=== PATIENT | female | born 1980 | race Hispanic/Latino ===

== ENCOUNTER 2016-11-30 02:10 | Inpatient (IN) ==
[2016-11-30 02:46] LABS: URINE SOURCE VOIDED
[2016-11-30 02:59] LABS: BILIRUBIN URINE NEGATIVE (NEGATIVE); BLOOD URINE NEGATIVE (NEGATIVE); CLARITY CLEAR (CLEAR); COLOR YELLOW; GLUCOSE URINE NEGATIVE (NEGATIVE); LEUKOCYTES URINE NEGATIVE (NEGATIVE); NITRITE URINE NEGATIVE (NEGATIVE); PROTEIN URINE NEGATIVE (NEGATIVE); UROBILINOGEN URINE NORMAL
[2016-11-30] MEDS ORDERED: KEFZOL 1 GM/D5W 1 GM/50 ML IVPB IV PRN (03:38)
[2016-11-30] MEDS ORDERED: STADOL IV PRN (03:38)
[2016-11-30] MEDS ORDERED: ZOFRAN IV PRN (03:38)
[2016-11-30] MEDS ORDERED: PEPCID PO PRN (03:38)
[2016-11-30] MEDS ORDERED: TYLENOL PO PRN (03:38)
[2016-11-30] MEDS ORDERED: PEPCID IV PRN (03:38)
[2016-11-30] MEDS ORDERED: PITOCIN 30 UNITS/LR 30 UNITS/500 ML IV.SOLN IV SCH (03:38)
[2016-11-30] MEDS ORDERED: SODIUM CHLORIDE 0.9% INJ SCH (03:45)
[2016-11-30] MEDS: LR 1,000 ML IV SCH ×2 (04:30→15:29)
[2016-11-30 04:50] LABS: MANUAL DIFF NEEDED? NO
[2016-11-30 04:54] LABS: BASO% 0.2 % (0.0-0.8); EOS# 0.16 X1000 (0.0-0.7); EOS% 1.8 % (0.0-10.0); HEMOGLOBIN 9.8 g/dL (12.0-16.0); IMM GRAN# 0.02 X1000 (0.0-0.04); IMM GRAN% 0.2 % (0.0-0.5); LYMPH# 1.96 X1000 (1.2-3.4); LYMPH% 22.2 % (20.5-51.1); MCH 26.1 PG (27-31); MCHC 32.7 g/dL (33-37); MCV 79.8 FL (81-99); MONO# 0.78 X1000 (0.11-0.59); MONO% 8.8 % (1.7-9.3); MPV 12.3 FL (7.4-10.4); NEUT% 66.8 % (42.2-75.2); PLT 167 X1000 (130-400); RBC 3.76 XMIL (4.2-5.4)
[2016-11-30] MEDS: STADOL IV PRN ×3 (12:10→17:56)
[2016-11-30] MEDS ORDERED: XYLOCAINE-MPF 1% INJ ONE (16:30)
[2016-11-30] MEDS ORDERED: MINERAL OIL PO ONE (17:10)
[2016-11-30] MEDS ORDERED: XYLOCAINE-MPF 1% INJ PRN (19:41)
[2016-11-30] MEDS ORDERED: PITOCIN 30 UNITS/LR 30 UNITS/500 ML IV.SOLN IV ONE (19:41)
[2016-11-30] MEDS ORDERED: AMBIEN PO PRN (19:41)
[2016-11-30] MEDS ORDERED: BENADRYL IV PRN (19:41)
[2016-11-30] MEDS ORDERED: HYDROXYZINE IM PRN (19:41)
[2016-11-30] MEDS ORDERED: PERCOCET-10 PO PRN (19:41)
[2016-11-30] MEDS ORDERED: BOOSTRIX VACCINE IM ONE (19:41)
[2016-11-30] MEDS ORDERED: PITOCIN IM PRN (19:41)
[2016-11-30] MEDS ORDERED: MINERAL OIL PO PRN (19:41)
[2016-11-30] MEDS ORDERED: CYTOTEC PO PRN (19:41)
[2016-11-30] MEDS ORDERED: HYDROXYZINE PO PRN (19:41)
[2016-11-30] MEDS ORDERED: BENADRYL PO PRN (19:41)
[2016-11-30] MEDS ORDERED: PERI MEDS (DERMOPLAST/NUPERCAINAL/TUCKS) MISC PRN (19:41)
[2016-11-30] MEDS ORDERED: PITOCIN 20 UNITS/LR 20 UNITS/1,000 ML IV.SOLN IV SCH (19:41)
[2016-11-30] MEDS ORDERED: FENTANYL-BUPIV-NS 2 MCG-0.1% 200 ML EPIDURAL PRN (19:56)
[2016-11-30] MEDS: MOTRIN PO PRN (21:27)
[2016-11-30] MEDS: PERICOLACE PO SCH (21:27)
--- NOTE | 2016-12-01 03:30 | OPERATIVE NOTE ---
PROCEDURE DATE: 11/30/2016 PROCEDURE: Spontaneous vaginal delivery. ADMISSION DIAGNOSIS: A 36-year-old, 4, para 3-0-0-3 at 39 weeks and 0 days, in latent labor. DELIVERING PHYSICIAN: Dr. Jie Villalobos. FINDINGS: Male weighing 7 pounds 1 ounce. Apgars 9 and 10. DELIVERY SUMMARY: This 36-year-old, G 4, P 3-0-0-3 at 39 weeks and 0 days, admitted in latent labor, underwent augmentation of labor with subsequent spontaneous vaginal delivery. The was delivered over intact perineum atraumatically and was placed upon the mother 's abdomen. The was bulb suctioned at delivery. The umbilical cord was clamped and cut , showing a 3 vessel cord. The placenta was then delivered spontaneously, intact. No lacerations were noted. Mother and baby were stable in the delivery room. cc: Jie Villalobos MD MTDD
[2016-12-01] MEDS: PERCOCET-5 PO PRN ×3 (03:31→17:27)
[2016-12-01 05:55] LABS: MANUAL DIFF NEEDED? NO
[2016-12-01 06:01] LABS: BASO% 0.1 % (0.0-0.8); EOS# 0.05 X1000 (0.0-0.7); EOS% 0.3 % (0.0-10.0); HEMATOCRIT 24.2 % (37.0-47.0); HEMOGLOBIN 7.5 g/dL (12.0-16.0); IMM GRAN# 0.04 X1000 (0.0-0.04); IMM GRAN% 0.3 % (0.0-0.5); LYMPH# 1.57 X1000 (1.2-3.4); LYMPH% 10.9 % (20.5-51.1); MCH 25.3 PG (27-31); MCV 81.5 FL (81-99); MONO# 1.19 X1000 (0.11-0.59); MONO% 8.3 % (1.7-9.3); MPV 13.1 FL (7.4-10.4); NEUT% 80.1 % (42.2-75.2); PLT 142 X1000 (130-400); RBC 2.97 XMIL (4.2-5.4)
[2016-12-01] MEDS: MOTRIN PO PRN ×2 (09:18→17:28)
[2016-12-01] MEDS: PRECARE PO SCH (09:18)
--- NOTE | 2016-12-01 15:10 | OB/GYN PROGRESS NOTE ---
Progress Note OB - . Patient Problems: Current Active Problems Problem Status Onset Intrauterine Acute OB Progress Note: Vital Signs - 24 hr 11/30/16 20:00 11/30/16 22:44 12/01/16 00:00 Temperature 97.1 F L 98.2 F 97.8 F Pulse Rate 96 H 79 71 Respiratory Rate 20 18 18 Blood Pressure 111/63 105/59 107/69 O2 Sat by Pulse Oximetry 100 100 12/01/16 03:33 12/01/16 07:07 12/01/16 15:03 Temperature 98.2 F 98.6 F 98.3 F Pulse Rate 73 77 82 Respiratory Rate 18 18 16 Blood Pressure 103/69 94/55 107/58 O2 Sat by Pulse Oximetry 100 100 Laboratory Results - last 24 hr 12/01/16 04:45 WBC 14.39 H RBC 2.97 L Hgb 7.5 L D Hct 24.2 L MCV 81.5 MCH 25.3 L MCHC 31.0 L RDW Std Deviation 13.4 Plt Count 142 MPV 13.1 H Immature Gran % (Auto) 0.3 Neut % (Auto) 80.1 H Lymph % (Auto) 10.9 L [place] % (Auto) 8.3 Eos % (Auto) 0.3 Baso % (Auto) 0.1 Immature Gran # (Auto) 0.04 Neut # (Auto) 11.52 H Lymph # (Auto) 1.57 [place] # (Auto) 1.19 H Eos # (Auto) 0.05 Baso # (Auto) 0.02 Patient is without complaint. Pain is well controlled. Ambulating and voiding without difficulty. Tolerating diet. Bottle and breast feeding. Gen: NAD, alert Abd: soft, nontender, fundus firm and at umbilicus Pelvis: minimal lochia rubra Ext: no edema, nontender, Eric's- 36yo who is PPD#1 s/p , doing well -continue routine care -encourage ambulation -continue regular diet Dispo: home tomorrow Jie Villalobos MD [employer]
[2016-12-01] MEDS: PERICOLACE PO SCH (20:27)
[2016-12-01] MEDS: FERROUS SULFATE PO SCH (20:27)
[2016-12-02 08:28] VITALS: BP 108/68
[2016-12-02] MEDS: FERROUS SULFATE PO SCH (08:33)
[2016-12-02] MEDS: MOTRIN PO PRN (08:33)
[2016-12-02] MEDS: PRECARE PO SCH (08:33)
--- NOTE | 2017-01-11 11:14 | DISCHARGE SUMMARY ---
ADMISSION DATE: 11/30/2016 DISCHARGE DATE: 12/02/2016 ADMISSION DIAGNOSIS: A 36-year-old, G4, P-3-0-0-3, at 39 weeks and 0 days in latent labor. PROCEDURES: Spontaneous vaginal delivery. DISCHARGE DIAGNOSIS: Status post spontaneous vaginal delivery. DELIVERING PHYSICIAN: Dr. Jie Villalobos. HOSPITAL COURSE: This 36-year-old, G4, P3-0-0-3, at 39 weeks and 0 days underwent augmentation of labor with subsequent spontaneous vaginal delivery. Hospital course was unremarkable and patient was discharged home on day #2. Patient gave to a male weighing 7 pounds 1 ounce with Apgars of 9 and 10. Discharge hemoglobin and hematocrit were 7.5 and 24.2. PHYSICAL EXAM: General: No acute distress. Alert. Abdomen: Soft, nontender. Fundus firm at the umbilicus. Pelvic: Minimal lochia rubra. Extremities: No edema. Nontender. Eric's negative DISCHARGE INSTRUCTIONS: Patient to have nothing per vagina. Patient may continue regular diet. DISCHARGE MEDICATIONS: 1. Colace. 2. Ferrous sulfate. 3. Ibuprofen. 4. vitamins. DISCHARGE FOLLOWUP: Patient to follow up with Dr. Villalobos in 6 weeks. cc: Jie Villalobos MD [facility]
== END 2016-12-02 11:00 | disposition home or self-care (01) ==
LOC: P.OPLD 02:10 → P.LD 02:12 → P.WC 23:40
PROVIDERS: ADMIT Student in an Organized Health Care Education/Training Program; ATTEND Student in an Organized Health Care Education/Training Program